=== PATIENT | male | born 1985 | race Caucasian/White ===

== ENCOUNTER 2022-08-15 15:07 | Emergency (ER) | payer OTHER ==
[2022-08-15] MEDS ORDERED: LIDOCAINE 5% TOPICAL PATCH TP ONE (15:32)
[2022-08-15] MEDS ORDERED: ACETAMINOPHEN 325 MG TABLET (FP) PO ONE (15:32)
[2022-08-15 15:45] VITALS: RESP 18; TEMP 98.3; BMI 30.1
[2022-08-15] MEDS ORDERED: ACETAMINOPHEN 325 MG TABLET (FP) ONE (15:59)
[2022-08-15] MEDS ORDERED: LIDOCAINE 5% TOPICAL PATCH ONE (16:00)
[2022-08-15 16:22] VITALS: BP 137/94; PULSE 70
[2022-08-15] MEDS ORDERED: LIDOCAINE PATCH REMOVAL MC SCH (22:00)
== END 2022-08-15 16:23 | disposition home or self-care (01) ==
LOC: FER 15:07
DX: S39.012A Strain of muscle, fascia and tendon of lower back, initial encounter (principal); X50.0XXA Overexertion from strenuous movement or load, initial encounter
CPT/HCPCS: 99283-25